=== PATIENT | female | born 1990 | race African-American/Black ===

== ENCOUNTER 2024-11-11 21:20 | Emergency (ER) | payer SELFPAY ==
[~2024-11-11] VITALS: Ht 175.3 cm; Wt 100.0 kg
[2024-11-11 22:02] VITALS: BP 167/105; PULSE 130; RESP 18; TEMP 98; O2SAT 100
== END 2024-11-11 23:42 | disposition left against medical advice (07) ==
LOC: ER 21:20
DX: T54.2X1A Toxic effect of corrosive acids and acid-like substances, accidental (unintentional), initial encounter (principal); R00.0 Tachycardia, unspecified; X58.XXXA Exposure to other specified factors, initial encounter; Y93.89 Activity, other specified; Y92.89 Other specified places as the place of occurrence of the external cause; Y99.8 Other external cause status; Z53.21 Procedure and treatment not carried out due to patient leaving prior to being seen by health care provider
CPT/HCPCS: 93005; 99283

== ENCOUNTER 2024-11-11 23:46 | Emergency (ER) | payer MEDICAID ==
[~2024-11-11] VITALS: Ht 177.8 cm; Wt 91.0 kg
[2024-11-12 00:43] LABS: DIFFERENTIAL COMMENT 0; EOSINOPHILS % 0.3 % (0.0-5.0); HEMATOCRIT. 33.8 % (36.0-48.0); LYMPHOCYTES % 26.3 % (20.0-50.0); MEAN CORPUSCULAR HEMOGLOBIN 24.4 pg (28.0-32.0); MEAN CORPUSCULAR HGB CONC 32.5 g/dL (31.0-37.0); MEAN CORPUSCULAR VOLUME 75.2 fL (81.0-99.0); MEAN PLATELET VOLUME 8.7 fl (7.4-10.4); MONOCYTES % 6.9 % (2.0-8.0); NEUTROPHILS % 65.5 % (40.0-76.0); PLATELET 353 x1000/uL (130-400); RED BLOOD CELL COUNT 4.49 mill/uL (4.2-5.4); RED CELL DISTRIBUTION WIDTH 17.7 % (11.6-14.6); WHITE BLOOD COUNT 9.4 x1000/uL (4.5-11.0)
[2024-11-12 01:33] LABS: CHLORIDE 106 mEq/L (98-107); POTASSIUM 3.3 mEq/L (3.5-5.1); SODIUM 138 mEq/L (136-145)
[2024-11-12 01:34] LABS: CARBON DIOXIDE 22 mEq/L (21-32)
[2024-11-12 01:39] LABS: GLUCOSE 88 mg/dL (70-105)
[2024-11-12 01:40] LABS: ETHANOL BLOOD 270 mg/dL (<10); UREA NITROGEN BLOOD 8 mg/dL (9-23)
[2024-11-12 01:41] LABS: HCG SCREEN NEGATIVE
[2024-11-12] MEDS: LORAZEPAM 2MG/ML INJ IM ONE (03:30)
[2024-11-12] MEDS: HALOPERIDOL LACTATE 5MG/ML VIAL IM ONE (03:30)
[2024-11-12] MEDS: DIPHENHYDRAMINE 50MG/ML VIAL IM ONE (03:30)
[2024-11-12 04:10] VITALS: TEMP 98.6
[2024-11-12 04:20] VITALS: O2SAT 100
[2024-11-12 07:30] VITALS: BP 144/102; PULSE 89; RESP 12; O2SAT 100
== END 2024-11-12 08:55 | disposition home or self-care (01) ==
LOC: ER 23:46
DX: R41.82 Altered mental status, unspecified (principal); R46.2 Strange and inexplicable behavior
CPT/HCPCS: 80048; 80320; 84703; 85025; 99291; 36415; 96372; J1200; J1630; J2060; G0480